=== PATIENT | male | born 1975 | race Caucasian/White ===

== ENCOUNTER 2016-09-06 12:08 | Emergency (ER) | payer MEDICARE, MEDICAID ==
[~2016-09-06] VITALS: Ht 172.7 cm; Wt 78.9 kg
[2016-09-06 12:08] VITALS: BP 136/89
[2016-09-06] MEDS ORDERED: NYST50SS SS (12:43)
[2016-09-06] MEDS ORDERED: IBUP600T26 PO (12:43)
== END 2016-09-06 13:05 | disposition home or self-care (01) ==
LOC: M ED 12:28
DX: R51 Headache (principal); B37.0 Candidal stomatitis; Z87.891 Personal history of nicotine dependence

== ENCOUNTER 2016-10-30 13:18 | Emergency (ER) | payer MEDICARE, MEDICAID ==
[~2016-10-30] VITALS: Ht 172.7 cm; Wt 77.5 kg
[~2016-10-30 13:18] MED LIST: IBUP-1022 PO; NYST50SS SS
--- NOTE | 2016-10-30 14:52 | REP ---
Clinical: Pain without trauma. Technique: AP, lateral, bilateral oblique views of the right ankle. Findings: No acute fracture dislocation. Joint spaces and ankle mortise are intact. Lateral view demonstrates small corticated loose bodies in the region of the distal Achilles tendon. Impression: Age-related degenerative changes. Possible calcific tendinopathy involving the Achilles tendon. Signed by Jared Orozco MD 10/30/2016 02:44 P
[2016-10-30] MEDS ORDERED: NAPR500T PO (15:05)
[2016-10-30 15:09] VITALS: BP 121/72
[2017-02-20] MEDS ORDERED: ZOFR4TAB3 PO (13:17)
== END 2016-10-30 15:20 | disposition home or self-care (01) ==
LOC: M ED 13:18
DX: S93.401A Sprain of unspecified ligament of right ankle, initial encounter (principal); M65.261 Calcific tendinitis, right lower leg; X58.XXXA Exposure to other specified factors, initial encounter; Y92.89 Other specified places as the place of occurrence of the external cause; Y93.01 Activity, walking, marching and hiking; Y99.8 Other external cause status; R56.9 Unspecified convulsions; H53.9 Unspecified visual disturbance

== ENCOUNTER 2017-01-27 09:10 | Emergency (ER) | payer MEDICARE, MEDICAID ==
[~2017-01-27] VITALS: Ht 172.7 cm; Wt 72.2 kg
[~2017-01-27 09:10] MED LIST changes: +NAPR500T PO
[2017-01-27 10:50] LABS: BASO # 0.1 10^3/uL (0.0-0.2); BASO % 0.7 % (0.0-1.0); IMMATURE GRANULOCYTE % 0.3 % (0-0); LYMPH # 2.1 10^3/uL (1.5-4.5); LYMPH % 31.6 % (24.0-44.0); MEAN CORPUSCULAR HEMOGLOBIN 29.5 pg (27.0-33.0); MEAN CORPUSCULAR HGB CONC 33.3 g/dl (32.0-36.5); MEAN CORPUSCULAR VOLUME 88.5 fl (80.0-96.0); MONO # 0.6 10^3/uL (0.0-0.8); MONO % 8.7 % (0.0-5.0); NEUTROPHILS % 58.7 % (36.0-66.0); PLATELET COUNT, AUTOMATED 267 10^3/uL (150-450); RED CELL DISTRIBUTION WIDTH 12.5 % (11.5-14.5); WHITE BLOOD COUNT 6.8 10^3/uL (4.0-10.0)
--- NOTE | 2017-01-27 10:56 | REP ---
AP pelvis and right hip: AP pelvis single view: Mineralization is normal. There is no fracture or dislocation. The sacroiliac articulations and hip articulations are unremarkable. There are pelvic calcifications, likely phleboliths. Impression: Essentially negative AP pelvis. Right hip two views: There is no fracture or dislocation. Mineralization normal. There are no calcifications or foreign bodies. Impression: Negative right hip. Signed by Theodore Frazier MD 01/27/2017 10:47 A
[2017-01-27 11:00] LABS: ADD MANUAL DIFFER NO; DIFF SLIDE NUMBER 201
[2017-01-27 11:07] LABS: ANION GAP 3 MEQ/L (8-16); BLOOD UREA NITROGEN 20 MG/DL (7-18); CALCIUM LEVEL 9.1 MG/DL (8.5-10.1); CARBON DIOXIDE LEVEL 31 MEQ/L (21-32); CHLORIDE LEVEL 105 MEQ/L (98-107); CREATININE FOR GFR 1.02 MG/DL (0.70-1.30); GLOMERULAR FILTRATION RATE > 60.0 (>60); GLUCOSE, FASTING 99 MG/DL (70-105); POTASSIUM SERUM 4.2 MEQ/L (3.5-5.1); SODIUM LEVEL 139 MEQ/L (136-145)
[2017-01-27 12:34] VITALS: BP 123/80
--- NOTE | 2017-01-29 05:44 | ECGEPIP ---
Stationary ECG Study [facility] - ED Test Date: 2017-01-27 Pat Name: ILEANA SALES Department: Room: - Gender: M Automobile Inspector: keshav : 1975 Requested By: Janette Mendoza Order Number: [id number] Reading MD: Keon Terrazas Measurements Intervals [place] Rate: 63 P: 50 AL: 168 QRS: 64 QRSD: 84 T: 48 QT: 388 QTc: 398 Interpretive Statements SINUS RHYTHM BENIGN EARLY REPOLARIZATION NO PRIORS Electronically Signed On 01-29-2017 5:43:46 EDT by Keon Terrazas
[2017-02-20] MEDS ORDERED: ZOFR4TAB3 PO (13:17)
== END 2017-01-27 12:38 | disposition home or self-care (01) ==
LOC: M ED 09:10
DX: J06.9 Acute upper respiratory infection, unspecified (principal); S70.01XA Contusion of right hip, initial encounter; W01.198A Fall on same level from slipping, tripping and stumbling with subsequent striking against other object, initial encounter; Y92.59 Other trade areas as the place of occurrence of the external cause; Y93.89 Activity, other specified; Y99.8 Other external cause status; Z98.890 Other specified postprocedural states

== ENCOUNTER 2017-03-19 17:39 | Emergency (ER) | payer MEDICARE, MEDICAID ==
[~2017-03-19] VITALS: Ht 172.7 cm; Wt 72.0 kg
[~2017-03-19 17:39] MED LIST changes: +ZOFR4TAB3 PO
[2017-03-19] MEDS ORDERED: NS 1,000 ML IV ONE (18:15)
[2017-03-19 18:22] LABS: BASO # 0.1 10^3/uL (0.0-0.2); BASO % 0.7 % (0.0-1.0); IMMATURE GRANULOCYTE % 0.2 % (0-0); LYMPH % 29.3 % (24.0-44.0); MEAN CORPUSCULAR HEMOGLOBIN 29.1 pg (27.0-33.0); MEAN CORPUSCULAR HGB CONC 33.3 g/dl (32.0-36.5); MEAN CORPUSCULAR VOLUME 87.6 fl (80.0-96.0); MONO # 0.8 10^3/uL (0.0-0.8); MONO % 8.2 % (0.0-5.0); NEUTROPHILS # 6.2 10^3/uL (1.8-7.7); NEUTROPHILS % 61.6 % (36.0-66.0); PLATELET COUNT, AUTOMATED 296 10^3/uL (150-450); WHITE BLOOD COUNT 10.1 10^3/uL (4.0-10.0)
--- NOTE | 2017-03-19 18:37 | REP ---
Clinical: Altered mental status . Comparison: 10/12/2005 . Findings: The mediastinum and cardiac silhouette are stable and within normal limits for portable technique. The lung lowry are clear without acute consolidation, effusion, or pneumothorax. Skeletal structures are intact. Impression: No acute cardiopulmonary process appreciated. Signed by Jared Orozco MD 03/19/2017 06:28 P
[2017-03-19 18:38] LABS: ALBUMIN 3.8 GM/DL (3.2-5.2); ALBUMIN/GLOBULIN RATIO 1.12 (1.00-1.93); ALKALINE PHOSPHATASE 77 U/L (45-117); ALT/SGPT 23 U/L (12-78); ANION GAP 5 MEQ/L (8-16); AST/SGOT 12 U/L (7-37); BILIRUBIN,DIRECT < 0.1 MG/DL (0.0-0.2); BILIRUBIN,TOTAL 0.2 MG/DL (0.2-1.0); BLOOD UREA NITROGEN 19 MG/DL (7-18); CALCIUM LEVEL 8.6 MG/DL (8.5-10.1); CARBON DIOXIDE LEVEL 32 MEQ/L (21-32); CHLORIDE LEVEL 102 MEQ/L (98-107); CREATININE FOR GFR 1.09 MG/DL (0.70-1.30); GLOMERULAR FILTRATION RATE > 60.0 (>60); GLUCOSE, FASTING 112 MG/DL (70-105); POTASSIUM SERUM 4.1 MEQ/L (3.5-5.1); SODIUM LEVEL 139 MEQ/L (136-145); TOTAL PROTEIN 7.2 GM/DL (6.4-8.2)
--- NOTE | 2017-03-19 18:45 | REP ---
Clinical: Altered mental status. Comparison: None . Findings: Age-related atrophy and microvascular ischemic changes are appreciated. Areas of encephalomalacia involving the left vertex and bilateral parieto-occipital regions (left greater than right) consistent with prior infarction. The ventricles are symmetric. Mercado-white differentiation is maintained. There is no evidence for acute intracranial hemorrhage, mass/mass effect, pathology or infarction. No extra-axial fluid collection. Calvarium is intact. Paranasal sinuses and mastoid air cells are clear. Impression: Age related atrophy and microvascular ischemic changes along with areas of chronic encephalomalacia related to old infarctions. No acute intracranial hemorrhage, infarction, or mass/mass effect. Signed by Jared Orozco MD 03/19/2017 06:36 P
--- NOTE | 2017-03-19 21:40 | REPUSA ---
Clinical history: seizure. Technique: [id number] MRA images of the brain were obtained without administration of contrast. 3 -D MIP images were also obtained. Findings: The vascular structures extending from the distal carotid and vertebrobasilar arterial syst ems, through the belkofski of [place], demonstrate normal caliber and contour. There is no evidence of an eurysm, stenosis, or thrombosis. Impression: Unremarkable MRA examination of the brain.
--- NOTE | 2017-03-19 22:00 | REPUSA ---
MRI of the brain. Clinical history: seizure. Technique: Multiecho multiplanar MRI images of the brain were obtained without administration of cont rast. Diffusion weighted images with ADC mapping was also obtained. Findings: The ventricles and sulci are symmetric bilaterally, except for large area of encephalomalacia in the occipital lobes bilaterally. The brain parenchyma demonstrates uniform and normal signal on all seque nces. There is no midline shift, mass effect, or extra-axial fluid collection. The midline intracrani al structures do not demonstrate any gross abnormalities. The cervical cranial junction is intact. Th e orbits are unremarkable. The visualized paranasal sinuses and mastoid air cells are clear. The osse ous structures and superficial soft tissues are unremarkable. The vascular structures demonstrate julian ropriate flow voids. Impression: 1. No evidence of acute infarct or hemorrhage. 2. Chronic encephalomalacia in the occipital lobes bilaterally, most consistent with chronic infarcts .
[2017-03-19 22:18] VITALS: BP 141/92
[2017-03-19 22:46] LABS: METHADONE URINE NEGATIVE (NEGATIVE)
--- NOTE | 2017-03-20 07:54 | ECGEPIP ---
Stationary ECG Study [facility] - ED Test Date: 2017-03-19 Pat Name: ILEANA SALES Department: Room: - Gender: M Coding Compliance Specialist: OroscoB: 1975 Requested By: PETTY YUNG Order Number: [id number] Reading MD: Janette Mendoza Measurements Intervals [place] Rate: 84 P: 53 AR: 155 QRS: 67 QRSD: 86 T: 51 QT: 328 QTc: 388 Interpretive Statements SINUS RHYTHM ST ELEVATION ?EARLY REPOLARIZATION - CLINICAL CORRELATION - SIMILAR 01/27/17 Electronically Signed On 03-20-2017 7:54:21 EST by Janette Mendoza
== END 2017-03-19 22:25 | disposition home or self-care (01) ==
LOC: M ED 17:39 → EDBD 17:39 → M ED 22:25
DX: R55 Syncope and collapse (principal); R56.9 Unspecified convulsions
CPT/HCPCS: 70450; 70544; 70551; 71010; 80048; 80076; 80307; 81001; 82550; 82553; 83605; 84443; 84484; 85025; 87086; 93005; 93041; 94760; 96360; 96361; 99285; G0480

== ENCOUNTER 2017-09-26 02:28 | Emergency (ER) | payer MEDICARE, MEDICAID | END 2017-09-26 03:12 | disposition home or self-care (01) | LOC: M ED 02:28 | DX: G40.909 Epilepsy, unspecified, not intractable, without status epilepticus (principal); Z91.19 Patient's noncompliance with other medical treatment and regimen | CPT/HCPCS: 99284 ==

== ENCOUNTER 2017-12-13 15:06 | Emergency (ER) | payer MEDICARE, MEDICAID ==
[2017-12-13 17:26] LABS: BASO # 0.1 10^3/uL (0.0-0.2); BASO % 0.6 % (0.0-1.0); HEMATOCRIT 38.4 % (42.0-52.0); HEMOGLOBIN 12.8 g/dl (13.5-17.5); IMMATURE GRANULOCYTE % 0.3 % (0-3.0); LYMPH # 2.3 10^3/uL (1.5-4.5); LYMPH % 29.6 % (24.0-44.0); MEAN CORPUSCULAR HEMOGLOBIN 29.9 pg (27.0-33.0); MEAN CORPUSCULAR HGB CONC 33.3 g/dl (32.0-36.5); MEAN CORPUSCULAR VOLUME 89.7 fl (80.0-96.0); MONO # 0.6 10^3/uL (0.0-0.8); MONO % 7.4 % (0.0-5.0); NEUTROPHILS # 4.8 10^3/uL (1.8-7.7); NEUTROPHILS % 62.1 % (36.0-66.0); PLATELET COUNT, AUTOMATED 234 10^3/uL (150-450); RED BLOOD COUNT 4.28 10^6/uL (4.30-6.10); RED CELL DISTRIBUTION WIDTH 12.2 % (11.5-14.5); WHITE BLOOD COUNT 7.8 10^3/uL (4.0-10.0)
[2017-12-13 17:49] LABS: ALBUMIN 3.5 GM/DL (3.2-5.2); ALBUMIN/GLOBULIN RATIO 1.21 (1.00-1.93); ALKALINE PHOSPHATASE 62 U/L (45-117); ALT/SGPT 20 U/L (12-78); ANION GAP 5 MEQ/L (8-16); AST/SGOT 12 U/L (7-37); BILIRUBIN,TOTAL 0.3 MG/DL (0.2-1.0); BLOOD UREA NITROGEN 20 MG/DL (7-18); C REACTIVE PROTEIN QUANTITATIV < 0.30 MG/DL (0.00-0.30); CALCIUM LEVEL 8.4 MG/DL (8.5-10.1); CARBON DIOXIDE LEVEL 31 MEQ/L (21-32); CHLORIDE LEVEL 110 MEQ/L (98-107); CREATININE FOR GFR 1.25 MG/DL (0.70-1.30); GAMMA GLUTAMYLTRANSPEPTIDASE 20 U/L (15-85); GLOMERULAR FILTRATION RATE > 60.0 (>60); GLUCOSE, FASTING 90 MG/DL (70-100); POTASSIUM SERUM 4.2 MEQ/L (3.5-5.1); SODIUM LEVEL 146 MEQ/L (136-145); TOTAL PROTEIN 6.4 GM/DL (6.4-8.2)
[2017-12-13 18:31] LABS: APPEARANCE, URINE HAZY (CLEAR); BACTERIA, URINE AUTO NEGATIVE (NEGATIVE); BILIRUBIN, URINE AUTO NEGATIVE (NEGATIVE); BLOOD, URINE BLOOD NEGATIVE (NEGATIVE); COLOR, URINE YELLOW (YELLOW); GLUCOSE, URINE (UA) AUTO NEGATIVE (NEGATIVE); KETONE, URINE AUTO NEGATIVE (NEGATIVE); LEUKOCYTE ESTERASE, URINE AUTO NEGATIVE (NEGATIVE); MUCUS, URINE SMALL (NEGATIVE); NITRITE, URINE AUTO NEGATIVE (NEGATIVE); PROTEIN, URINE AUTO NEGATIVE (NEGATIVE); RBC, URINE AUTO 4 /HPF (0-3); SPECIFIC GRAVITY URINE AUTO 1.025 (1.002-1.035); SQUAMOUS EPITHELIAL CELL UR AU 0 /HPF (0-6); UROBILINOGEN, URINE AUTO 0.2 mg/dL (0.0-2.0); WBC, URINE AUTO 1 /HPF (0-3)
== END 2017-12-13 19:20 | disposition home or self-care (01) ==
LOC: M ED 15:06
DX: R19.7 Diarrhea, unspecified (principal); G80.9 Cerebral palsy, unspecified; R62.50 Unspecified lack of expected normal physiological development in childhood; Z86.69 Personal history of other diseases of the nervous system and sense organs; Z87.891 Personal history of nicotine dependence; Z79.899 Other long term (current) drug therapy
CPT/HCPCS: 76705

== ENCOUNTER → 2018-01-06 | Outpatient (REF) | payer MEDICARE, MEDICAID ==
[2018-01-06 18:29] LABS: BASO # 0.1 10^3/uL (0.0-0.2); BASO % 0.5 % (0.0-1.0); HEMATOCRIT 42.3 % (42.0-52.0); HEMOGLOBIN 14.5 g/dl (13.5-17.5); IMMATURE GRANULOCYTE % 0.3 % (0-3.0); LYMPH # 2.3 10^3/uL (1.5-4.5); LYMPH % 25.1 % (24.0-44.0); MEAN CORPUSCULAR HEMOGLOBIN 29.7 pg (27.0-33.0); MEAN CORPUSCULAR HGB CONC 34.3 g/dl (32.0-36.5); MEAN CORPUSCULAR VOLUME 86.7 fl (80.0-96.0); MONO # 0.6 10^3/uL (0.0-0.8); MONO % 6.5 % (0.0-5.0); NEUTROPHILS # 6.2 10^3/uL (1.8-7.7); NEUTROPHILS % 67.6 % (36.0-66.0); PLATELET COUNT, AUTOMATED 313 10^3/uL (150-450); RED BLOOD COUNT 4.88 10^6/uL (4.30-6.10); RED CELL DISTRIBUTION WIDTH 11.9 % (11.5-14.5); WHITE BLOOD COUNT 9.1 10^3/uL (4.0-10.0)
[2018-01-06 19:29] LABS: ALBUMIN 4.2 GM/DL (3.2-5.2); ALBUMIN/GLOBULIN RATIO 1.31 (1.00-1.93); ALKALINE PHOSPHATASE 74 U/L (45-117); ALT/SGPT 18 U/L (12-78); ANION GAP 9 MEQ/L (8-16); AST/SGOT 13 U/L (7-37); BILIRUBIN,TOTAL 0.4 MG/DL (0.2-1.0); BLOOD UREA NITROGEN 17 MG/DL (7-18); CALCIUM LEVEL 8.8 MG/DL (8.5-10.1); CARBON DIOXIDE LEVEL 26 MEQ/L (21-32); CHLORIDE LEVEL 105 MEQ/L (98-107); CREATININE FOR GFR 1.04 MG/DL (0.70-1.30); GLOMERULAR FILTRATION RATE > 60.0 (>60); GLUCOSE, FASTING 81 MG/DL (70-100); POTASSIUM SERUM 3.9 MEQ/L (3.5-5.1); SODIUM LEVEL 140 MEQ/L (136-145); TOTAL PROTEIN 7.4 GM/DL (6.4-8.2)
[2018-01-12 14:16] LABS: ESLICARBAZEPINE 3 ug/mL (Not Estab.)
== END ==
LOC: M LABNEURO 15:25
DX: G40.909 Epilepsy, unspecified, not intractable, without status epilepticus (principal)
CPT/HCPCS: 80053

== ENCOUNTER 2018-01-25 10:19 | Emergency (ER) | payer MEDICARE, MEDICAID | END 2018-01-25 11:01 | disposition home or self-care (01) | LOC: M ED 10:19 | DX: L03.116 Cellulitis of left lower limb (principal); G80.9 Cerebral palsy, unspecified; Z98.890 Other specified postprocedural states | CPT/HCPCS: 99283 ==

== ENCOUNTER 2018-03-04 17:00 | Emergency (ER) | payer MEDICARE, MEDICAID ==
[2018-03-04 17:34] LABS: BASO % 0.3 % (0.0-1.0); HEMATOCRIT 49.2 % (42.0-52.0); HEMOGLOBIN 16.4 g/dl (13.5-17.5); IMMATURE GRANULOCYTE % 0.4 % (0-3.0); LYMPH # 1.1 10^3/uL (1.5-4.5); LYMPH % 9.6 % (24.0-44.0); MEAN CORPUSCULAR HEMOGLOBIN 29.4 pg (27.0-33.0); MEAN CORPUSCULAR HGB CONC 33.3 g/dl (32.0-36.5); MEAN CORPUSCULAR VOLUME 88.2 fl (80.0-96.0); MONO # 0.8 10^3/uL (0.0-0.8); MONO % 7.6 % (0.0-5.0); NEUTROPHILS # 9.1 10^3/uL (1.8-7.7); NEUTROPHILS % 82.1 % (36.0-66.0); PLATELET COUNT, AUTOMATED 247 10^3/uL (150-450); RED BLOOD COUNT 5.58 10^6/uL (4.30-6.10)
[2018-03-04] MEDS: NS 1,000 ML IV ×3 (17:34→23:00)
[2018-03-04 18:21] LABS: ANION GAP 6 MEQ/L (8-16); BLOOD UREA NITROGEN 17 MG/DL (7-18); CALCIUM LEVEL 9.1 MG/DL (8.5-10.1); CARBON DIOXIDE LEVEL 27 MEQ/L (21-32); CHLORIDE LEVEL 105 MEQ/L (98-107); CREATININE FOR GFR 1.06 MG/DL (0.70-1.30); GLOMERULAR FILTRATION RATE > 60.0 (>60); GLUCOSE, FASTING 119 MG/DL (70-100); POTASSIUM SERUM 4.6 MEQ/L (3.5-5.1); SODIUM LEVEL 138 MEQ/L (136-145)
[2018-03-04] MEDS ORDERED: ISOVUE-370 76% 100ML VIAL (Q9967) As Ordered (20:15)
[2018-03-04] MEDS: GASTROGRAFIN SOLUTION 30ML PO ×2 (22:15→22:47)
[2018-03-04] MEDS ORDERED: ACETAMINOPHEN 325 MG TAB As Ordered (22:20)
[2018-03-04] MEDS: ACETAMINOPHEN TAB 650MG DOSE (2X325MG) PO (22:22)
[2018-03-05] MEDS: IBUPROFEN 800 MG TAB PO
== END 2018-03-05 01:39 | disposition home or self-care (01) ==
LOC: M ED 03-05 01:39
DX: K52.9 Noninfective gastroenteritis and colitis, unspecified (principal); G80.9 Cerebral palsy, unspecified; R56.9 Unspecified convulsions
CPT/HCPCS: Q9963

== ENCOUNTER → 2018-03-24 | Outpatient (REF) | payer MEDICARE, MEDICAID ==
[2018-03-30 00:06] LABS: ESLICARBAZEPINE 10 ug/mL (Not Estab.)
== END ==
LOC: M LABNEURO 14:59
DX: R56.9 Unspecified convulsions (principal)
CPT/HCPCS: G0480

== ENCOUNTER 2018-08-13 12:26 | Emergency (ER) | payer MEDICARE, MEDICAID ==
[~2018-08-13] VITALS: Ht 172.7 cm; Wt 78.7 kg
[~2018-08-13 12:26] MED LIST changes: +APTI1TAB4 PO; +KEFL500C17 PO; +MELO15TA28 PO; +NAPR-837 PO; -NAPR500T PO; +ZOFR4TAB14 PO; -ZOFR4TAB3 PO
[2018-08-13 12:27] VITALS: BP 133/72
[2018-08-13] MEDS ORDERED: CYCL5TAB PO (13:04)
[2018-08-13] MEDS ORDERED: IBUP80TA PO (13:04)
[2018-08-13] MEDS ORDERED: LIDOCAINE 5% (LIDODERM) PATCH TD ONE (13:15)
[2018-08-13] MEDS ORDERED: IBUPROFEN 800 MG TAB PO ONE (13:15)
== END 2018-08-13 13:13 | disposition home or self-care (01) ==
LOC: M ED 12:26
DX: M54.5 Low back pain (principal); G80.9 Cerebral palsy, unspecified; R56.9 Unspecified convulsions; R62.50 Unspecified lack of expected normal physiological development in childhood

== ENCOUNTER → 2018-08-17 | Outpatient (CLI) | payer MEDICARE, MEDICAID ==
[~2018-08-17] MED LIST changes: +CYCL5TAB PO; +IBUP80TA PO
--- NOTE | 2018-08-18 05:33 | REP ---
CERVICAL SPINE, THREE VIEWS: HISTORY: Disc symptoms. There is no acute fracture or subluxation. The C4-5 through C6-7 intervertebral discs are decreased in height consistent with disc degeneration. Osteophytes are present on C4-7. There is loss of the normal lordotic curve. IMPRESSION: Degenerative change as described above. Electronically Signed by Papa Barajas MD 08/18/2018 08:32 A
--- NOTE | 2018-08-18 05:34 | REP ---
THORACIC SPINE, TWO VIEWS: HISTORY: Disc symptoms. There is no acute fracture or subluxation. There is loss of height of several mid and lower thoracic intervertebral discs. Osteophytes are present in the mid and lower thoracic spine. IMPRESSION: Degenerative change as described above. Electronically Signed by Papa Barajas MD 08/18/2018 08:32 A
--- NOTE | 2018-08-18 05:35 | REP ---
LUMBAR SPINE, TWO VIEWS: HISTORY: Disc symptoms. There is no acute fracture or subluxation. The L4-5 intervertebral disc is decreased in height consistent with disc degeneration. IMPRESSION: Degenerative change as described above. Electronically Signed by Papa Barajas MD 08/18/2018 08:32 A
== END ==
LOC: M RAD 18:17
PROVIDERS: ATTEND Chiropractor
DX: M51.36 Other intervertebral disc degeneration, lumbar region (principal); M51.34 Other intervertebral disc degeneration, thoracic region; M50.323 Other cervical disc degeneration at C6-C7 level; M50.321 Other cervical disc degeneration at C4-C5 level; M99.03 Segmental and somatic dysfunction of lumbar region; M54.11 Radiculopathy, occipito-atlanto-axial region; M99.01 Segmental and somatic dysfunction of cervical region; M25.78 Osteophyte, vertebrae

== ENCOUNTER 2018-09-09 16:03 | Emergency (ER) | payer MEDICARE, MEDICAID ==
[~2018-09-09] VITALS: Ht 180.3 cm; Wt 81.1 kg
[2018-09-09 18:01] LABS: BASO # 0.1 10^3/uL (0.0-0.2); BASO % 0.6 % (0.0-1.0); EOS % 0.1 % (0.0-3.0); HEMATOCRIT 44.2 % (42.0-52.0); HEMOGLOBIN 14.9 g/dl (13.5-17.5); LYMPH # 2.8 10^3/uL (1.5-4.5); LYMPH % 32.7 % (24.0-44.0); MEAN CORPUSCULAR HEMOGLOBIN 30.1 pg (27.0-33.0); MEAN CORPUSCULAR HGB CONC 33.7 g/dl (32.0-36.5); MEAN CORPUSCULAR VOLUME 89.3 fl (80.0-96.0); MONO # 0.7 10^3/uL (0.0-0.8); MONO % 8.2 % (0.0-5.0); NEUTROPHILS % 57.9 % (36.0-66.0); PLATELET COUNT, AUTOMATED 279 10^3/uL (150-450); RED BLOOD COUNT 4.95 10^6/uL (4.30-6.10); WHITE BLOOD COUNT 8.7 10^3/uL (4.0-10.0)
[2018-09-09 18:10] LABS: INR 0.89; PROTHROMBIN TIME 12.1 SECONDS (12.1-14.4)
[2018-09-09 18:13] LABS: D-DIMER QUANT 332.49 ng/ml (<500)
[2018-09-09 18:28] LABS: ALBUMIN 4.3 GM/DL (3.2-5.2); ALT/SGPT 35 U/L (12-78); BILIRUBIN,DIRECT < 0.1 MG/DL (0.0-0.2); BILIRUBIN,TOTAL 0.2 MG/DL (0.2-1.0); BLOOD UREA NITROGEN 16 MG/DL (7-18); CALCIUM LEVEL 9.4 MG/DL (8.5-10.1); CARBON DIOXIDE LEVEL 29 MEQ/L (21-32); CHLORIDE LEVEL 104 MEQ/L (98-107); CPK CREATINE PHOSPHOKINASE 174 U/L (39-308); CREATININE FOR GFR 1.02 MG/DL (0.70-1.30); GLOMERULAR FILTRATION RATE > 60.0 (>60); GLUCOSE, FASTING 97 MG/DL (70-100); MB/CK RELATIVE INDEX 1.09 (< OR =4); NT-PRO BNP 9 PG/ML (<125); POTASSIUM SERUM 4.4 MEQ/L (3.5-5.1); SODIUM LEVEL 138 MEQ/L (136-145); TOTAL PROTEIN 7.2 GM/DL (6.4-8.2); TROPONIN I < 0.02 NG/ML (< 0.10)
[2018-09-09] MEDS ORDERED: VENTAER INH (20:08)
[2018-09-09 20:09] VITALS: BP 130/83
--- NOTE | 2018-09-10 08:02 | REP ---
REASON: Dyspnea. COMPARISON: 10/12/2005 the latest prior. FINDINGS: The superior mediastinal structures are midline. The cardiac silhouette is unremarkable in size, shape, and position. The diaphragmatic surfaces of the lungs are regular, and the costophrenic angles are clear. The pulmonary lowry are clear. The imaged osseous structures are intact. IMPRESSION: There is no acute cardiopulmonary disease. Electronically Signed by Michel Pagan DO 09/10/2018 08:30 A
--- NOTE | 2018-09-10 17:46 | ECGEPIP ---
Stationary ECG Study [facility] - ED Test Date: 2018-09-09 Pat Name: ILEANA SALES Department: Room: - Gender: M President And Ceo: ct : 1975 Requested By: GENNARO CHAPMAN PA-C Order Number: [id number] Reading MD: Janette Mendoza Measurements Intervals [place] Rate: 72 P: 45 AL: 167 QRS: 44 QRSD: 82 T: 37 QT: 359 QTc: 393 Interpretive Statements SINUS RHYTHM DECREASED RATE 03/19/17 Electronically Signed On 09-10-2018 17:46:19 EDT by Janette Mendoza
== END 2018-09-09 20:13 | disposition home or self-care (01) ==
LOC: M ED 16:03
DX: R06.02 Shortness of breath (principal); R56.9 Unspecified convulsions; G80.9 Cerebral palsy, unspecified; F79 Unspecified intellectual disabilities; H54.7 Unspecified visual loss; Z79.899 Other long term (current) drug therapy

== ENCOUNTER → 2018-10-11 | Outpatient (REF) | payer MEDICARE, MEDICAID ==
[~2018-10-11] MED LIST changes: +VENTAER INH
[2018-10-11 19:08] LABS: BASO % 0.5 % (0.0-1.0); HEMOGLOBIN 14.5 g/dl (13.5-17.5); LYMPH # 2.1 10^3/uL (1.5-4.5); LYMPH % 28.7 % (24.0-44.0); MEAN CORPUSCULAR HEMOGLOBIN 29.8 pg (27.0-33.0); MEAN CORPUSCULAR VOLUME 90.5 fl (80.0-96.0); MONO # 0.6 10^3/uL (0.0-0.8); MONO % 7.9 % (0.0-5.0); NEUTROPHILS # 4.6 10^3/uL (1.8-7.7); NEUTROPHILS % 62.8 % (36.0-66.0); PLATELET COUNT, AUTOMATED 261 10^3/uL (150-450); RED BLOOD COUNT 4.86 10^6/uL (4.30-6.10); WHITE BLOOD COUNT 7.4 10^3/uL (4.0-10.0)
[2018-10-11 19:20] LABS: ALBUMIN 3.8 GM/DL (3.2-5.2); ALT/SGPT 27 U/L (12-78); BILIRUBIN,TOTAL 0.2 MG/DL (0.2-1.0); BLOOD UREA NITROGEN 17 MG/DL (7-18); CALCIUM LEVEL 9.1 MG/DL (8.5-10.1); CARBON DIOXIDE LEVEL 28 MEQ/L (21-32); CHLORIDE LEVEL 106 MEQ/L (98-107); CREATININE FOR GFR 0.96 MG/DL (0.70-1.30); GLOMERULAR FILTRATION RATE > 60.0 (>60); GLUCOSE, FASTING 92 MG/DL (70-100); POTASSIUM SERUM 4.1 MEQ/L (3.5-5.1); SODIUM LEVEL 140 MEQ/L (136-145); TOTAL PROTEIN 7.1 GM/DL (6.4-8.2)
== END ==
LOC: M LABNEURO 14:02
PROVIDERS: ATTEND Psychiatry & Neurology Neurology
DX: R56.9 Unspecified convulsions (principal)
CPT/HCPCS: 36415; 80053; 85025; G0480

== ENCOUNTER 2019-05-23 21:34 | Emergency (ER) | payer MEDICARE, MEDICAID ==
[~2019-05-23] VITALS: Ht 180.3 cm; Wt 81.9 kg
[2019-05-23] MEDS ORDERED: TOPA100T12 PO (21:38)
[2019-05-23] MEDS ORDERED: TOPIRAMATE (TopAMAX) 100 MG TAB PO ONE (22:30)
[2019-05-23 23:46] VITALS: BP 158/84
== END 2019-05-23 23:47 | disposition home or self-care (01) ==
LOC: M ED 21:34
DX: G40.919 Epilepsy, unspecified, intractable, without status epilepticus (principal); Z79.899 Other long term (current) drug therapy

== ENCOUNTER → 2019-06-03 | Outpatient (CLI) | payer MEDICARE, MEDICAID ==
[~2019-06-03] MED LIST changes: +TOPA100T12 PO
[2019-06-03 10:48] LABS: BASO # 0.1 10^3/uL (0.0-0.2); BASO % 0.9 % (0.0-1.0); HEMATOCRIT 43.7 % (42.0-52.0); HEMOGLOBIN 14.5 g/dl (13.5-17.5); LYMPH # 2.5 10^3/uL (1.5-5.0); LYMPH % 27.7 % (24.0-44.0); MEAN CORPUSCULAR HEMOGLOBIN 29.4 pg (27.0-33.0); MEAN CORPUSCULAR HGB CONC 33.2 g/dl (32.0-36.5); MEAN CORPUSCULAR VOLUME 88.6 fl (80.0-96.0); MONO # 0.8 10^3/uL (0.0-0.8); MONO % 8.6 % (0.0-5.0); NEUTROPHILS # 5.7 10^3/uL (1.5-8.5); NEUTROPHILS % 62.3 % (36.0-66.0); PLATELET COUNT, AUTOMATED 292 10^3/uL (150-450); RED BLOOD COUNT 4.93 10^6/uL (4.30-6.10); WHITE BLOOD COUNT 9.1 10^3/uL (4.0-10.0)
[2019-06-03 11:15] LABS: ALBUMIN 3.9 GM/DL (3.2-5.2); ALT/SGPT 21 U/L (12-78); BILIRUBIN,TOTAL 0.3 MG/DL (0.2-1.0); BLOOD UREA NITROGEN 18 MG/DL (7-18); CALCIUM LEVEL 8.8 MG/DL (8.5-10.1); CARBON DIOXIDE LEVEL 25 MEQ/L (21-32); CHLORIDE LEVEL 108 MEQ/L (98-107); GLOMERULAR FILTRATION RATE > 60.0 (>60); GLUCOSE, FASTING 83 MG/DL (70-100); POTASSIUM SERUM 4.2 MEQ/L (3.5-5.1); SODIUM LEVEL 139 MEQ/L (136-145); TOTAL PROTEIN 7.2 GM/DL (6.4-8.2)
[2019-06-07 08:06] LABS: TOPIRAMATE LEVEL 3.5 ug/mL (2.0-25.0)
== END ==
LOC: M LAB 10:09
PROVIDERS: ATTEND Psychiatry & Neurology Neurology
DX: R56.9 Unspecified convulsions (principal)
CPT/HCPCS: 36415; 80053; 80299; 85025; G0480

== ENCOUNTER → 2020-12-20 | Outpatient (CLI) | payer MEDICARE, MEDICAID ==
[2020-12-20 12:48] LABS: BASO % 0.5 % (0.0-1.0); HEMATOCRIT 39.1 % (42.0-52.0); HEMOGLOBIN 13.3 g/dl (13.5-17.5); LYMPH # 1.8 10^3/uL (1.5-5.0); LYMPH % 24.6 % (24.0-44.0); MEAN CORPUSCULAR HEMOGLOBIN 30.3 pg (27.0-33.0); MEAN CORPUSCULAR VOLUME 89.1 fl (80.0-96.0); MONO # 0.5 10^3/uL (0.0-0.8); MONO % 6.5 % (2.0-8.0); NEUTROPHILS # 5.1 10^3/uL (1.5-8.5); NEUTROPHILS % 68.1 % (36.0-66.0); PLATELET COUNT, AUTOMATED 286 10^3/uL (150-450); RED BLOOD COUNT 4.39 10^6/uL (4.30-6.10); WHITE BLOOD COUNT 7.4 10^3/uL (4.0-10.0)
[2020-12-20 13:32] LABS: ALBUMIN 3.8 GM/DL (3.2-5.2); ALT/SGPT 24 U/L (12-78); BILIRUBIN,TOTAL 0.3 MG/DL (0.2-1.0); BLOOD UREA NITROGEN 19 MG/DL (7-18); CALCIUM LEVEL 9.2 MG/DL (8.5-10.1); CARBON DIOXIDE LEVEL 21 MEQ/L (21-32); CHLORIDE LEVEL 114 MEQ/L (98-107); CREATININE FOR GFR 1.02 MG/DL (0.70-1.30); GLOMERULAR FILTRATION RATE > 60.0 (>60); GLUCOSE, FASTING 89 MG/DL (70-100); POTASSIUM SERUM 3.8 MEQ/L (3.5-5.1); SODIUM LEVEL 140 MEQ/L (136-145)
[2020-12-23 19:08] LABS: LEVETIRACETAM (KEPPRA) 9.7 ug/mL (10.0-40.0)
== END ==
LOC: M LAB 11:51
PROVIDERS: ATTEND Psychiatry & Neurology Neurology
DX: R56.9 Unspecified convulsions (principal)
CPT/HCPCS: 36415; 80053; 80180; 80299; 85025; G0480

== ENCOUNTER → 2023-05-18 | Outpatient (CLI) | payer MEDICARE, MEDICAID ==
[~2023-05-18] MED LIST changes: +NYST-38 SS; -NYST50SS SS
[2023-05-18 17:32] LABS: BASO # 0.1 10^3/uL (0.0-0.2); BASO % 0.6 % (0.0-1.0); EOS % 0.1 % (0.0-3.0); HEMOGLOBIN 13.4 g/dl (13.5-17.5); LYMPH # 2.3 10^3/uL (1.5-5.0); LYMPH % 26.9 % (24.0-44.0); MEAN CORPUSCULAR HEMOGLOBIN 30.1 pg (27.0-33.0); MEAN CORPUSCULAR HGB CONC 32.7 g/dl (32.0-36.5); MEAN CORPUSCULAR VOLUME 92.1 fl (80.0-96.0); MONO # 0.6 10^3/uL (0.0-0.8); MONO % 7.4 % (2.0-8.0); NEUTROPHILS # 5.4 10^3/uL (1.5-8.5); NEUTROPHILS % 64.8 % (36.0-66.0); PLATELET COUNT, AUTOMATED 291 10^3/uL (150-450); RED BLOOD COUNT 4.45 10^6/uL (4.30-6.10); WHITE BLOOD COUNT 8.4 10^3/uL (4.0-10.0)
[2023-05-18 17:54] LABS: ALKALINE PHOSPHATASE 70 U/L (46-116); ALT/SGPT 17 U/L (7.0-40); AST/SGOT 10 U/L (<34); BILIRUBIN,TOTAL 0.4 MG/DL (0.3-1.2); BLOOD UREA NITROGEN 17 MG/DL (9-23); CALCIUM LEVEL 9.1 MG/DL (8.5-10.1); CARBON DIOXIDE LEVEL 26 MMOL/L (20-31); CHLORIDE LEVEL 110 MMOL/L (98-107); CREATININE FOR GFR 1.07 MG/DL (0.70-1.30); GLOMERULAR FILTRATION RATE > 60.0 (>60); GLUCOSE, FASTING 85 MG/DL (60-100); POTASSIUM SERUM 4.2 MMOL/L (3.5-5.1); SODIUM LEVEL 141 MMOL/L (136-145); TOTAL PROTEIN 6.6 G/DL (5.7-8.2)
== END ==
LOC: M PLALAB 12:28
PROVIDERS: ATTEND Psychiatry & Neurology Neurology
DX: R56.9 Unspecified convulsions (principal)
CPT/HCPCS: 36415; 80053; 80180; 80299; 85025; G0480

== ENCOUNTER → 2023-12-22 | Outpatient (CLI) | payer MEDICARE, MEDICAID | LOC: M WUC 11:03 | PROVIDERS: ATTEND Physician Assistant | DX: M54.50 Low back pain, unspecified (principal) ==

== ENCOUNTER 2024-07-19 07:16 | Day surgery (SDC) | payer MEDICARE, MEDICAID ==
[~2024-07-19] VITALS: Ht 185.4 cm; Wt 83.3 kg
[~2024-07-19 07:16] MED LIST changes: +ATOR1TAB21 PO; +BAYE81TA10 PO; -CYCL5TAB PO; +CYCL5TAB4 PO; +LEVE500T5 PO; +META0.52 PO
[2024-07-19 09:30] VITALS: BP 144/92; O2SAT 99
== END 2024-07-19 09:45 | disposition home or self-care (01) ==
LOC: M OPP 07:16
PROVIDERS: ATTEND Surgery
DX: K62.82 Dysplasia of anus (principal); K56.690 Other partial intestinal obstruction; K52.9 Noninfective gastroenteritis and colitis, unspecified; R19.4 Change in bowel habit; Z79.82 Long term (current) use of aspirin; Z79.899 Other long term (current) drug therapy; R56.9 Unspecified convulsions; Z87.891 Personal history of nicotine dependence

== ENCOUNTER → 2024-08-02 | Outpatient (CLI) | payer MEDICARE, MEDICAID ==
[~2024-08-02] MED LIST changes: +CAPE1TAB2 PO; +DIAZ2TAB PO; +ISOVUE-370 76% 100ML VIAL As Ordered ONE
== END ==
LOC: M RAD 08:19
PROVIDERS: ATTEND Surgery
DX: D49.0 Neoplasm of unspecified behavior of digestive system (principal)
CPT/HCPCS: 74177; Q9967

== ENCOUNTER → 2024-08-03 | Outpatient (CLI) | payer MEDICARE, MEDICAID ==
[~2024-08-03] MED LIST changes: -ISOVUE-370 76% 100ML VIAL As Ordered ONE
[2024-08-03 17:23] LABS: BASO # 0.1 10^3/uL (0.0-0.2); BASO % 0.9 % (0.0-1.0); HEMATOCRIT 40.2 % (42.0-52.0); HEMOGLOBIN 13.3 g/dl (13.5-17.5); LYMPH # 2.3 10^3/uL (1.5-5.0); LYMPH % 24.9 % (24.0-44.0); MEAN CORPUSCULAR HEMOGLOBIN 29.4 pg (27.0-33.0); MEAN CORPUSCULAR HGB CONC 33.1 g/dl (32.0-36.5); MEAN CORPUSCULAR VOLUME 88.9 fl (80.0-96.0); MONO # 0.5 10^3/uL (0.0-0.8); MONO % 5.6 % (2.0-8.0); NEUTROPHILS # 6.4 10^3/uL (1.5-8.5); NEUTROPHILS % 68.3 % (36.0-66.0); PLATELET COUNT, AUTOMATED 334 10^3/uL (150-450); RED BLOOD COUNT 4.52 10^6/uL (4.30-6.10); WHITE BLOOD COUNT 9.4 10^3/uL (4.0-10.0)
[2024-08-03 17:37] LABS: ALBUMIN 3.8 G/DL (3.2-5.2); ALKALINE PHOSPHATASE 82 U/L (40-129); ALT/SGPT 40 U/L (7.0-40); AST/SGOT 20 U/L (<34); BILIRUBIN,TOTAL 0.2 MG/DL (0.3-1.2); BLOOD UREA NITROGEN 22 MG/DL (9-23); CALCIUM LEVEL 9.3 MG/DL (8.5-10.1); CARBON DIOXIDE LEVEL 26 MMOL/L (20-31); CHLORIDE LEVEL 108 MMOL/L (98-107); GLOMERULAR FILTRATION RATE 82.3 (>60); GLUCOSE, FASTING 94 MG/DL (60-100); POTASSIUM SERUM 4.1 MMOL/L (3.5-5.1); SODIUM LEVEL 143 MMOL/L (136-145); TOTAL PROTEIN 6.8 G/DL (5.7-8.2)
[2024-08-03 17:42] LABS: CARCINOEMBRYONIC ANTIGEN < 2.0 NG/ML (<2.5)
== END ==
LOC: M LAB 16:46
PROVIDERS: ATTEND Internal Medicine Medical Oncology
DX: K62.9 Disease of anus and rectum, unspecified (principal)

== ENCOUNTER → 2024-08-03 | Outpatient (CLI) | payer MEDICARE, MEDICAID | LOC: M ONCR 13:58 | PROVIDERS: ATTEND General Practice | DX: C20 Malignant neoplasm of rectum (principal); Z85.828 Personal history of other malignant neoplasm of skin; Z87.891 Personal history of nicotine dependence; Z79.82 Long term (current) use of aspirin; Z79.899 Other long term (current) drug therapy ==

== ENCOUNTER → 2024-08-18 | Outpatient (CLI) | payer MEDICARE, MEDICAID ==
[~2024-08-18] MED LIST changes: +ISOVUE-370 76% 100ML VIAL As Ordered ONE; +PROHANCE 279.3MG/ML 15ML VIAL As Ordered ONE; +PROHANCE 279.3MG/ML 5ML VIAL As Ordered ONE
== END ==
LOC: M RAD 06:49
PROVIDERS: ATTEND General Practice
DX: C20 Malignant neoplasm of rectum (principal)
CPT/HCPCS: 71260; 72197; A9576; Q9967

== ENCOUNTER → 2024-09-11 | Outpatient (CLI) | payer MEDICARE, MEDICAID ==
[~2024-09-11] MED LIST changes: -ISOVUE-370 76% 100ML VIAL As Ordered ONE; +ISOVUE-370 76% 100ML VIAL ONE; -PROHANCE 279.3MG/ML 15ML VIAL As Ordered ONE; -PROHANCE 279.3MG/ML 5ML VIAL As Ordered ONE
== END ==
LOC: M PLAIMG 08:13
PROVIDERS: ATTEND Internal Medicine Medical Oncology
DX: C20 Malignant neoplasm of rectum (principal)
CPT/HCPCS: 70491; Q9967

== ENCOUNTER → 2024-10-23 | Outpatient (CLI) | payer MEDICARE, MEDICAID ==
[~2024-10-23] MED LIST changes: +BACT800T5; +CLOB5CR TOP; -ISOVUE-370 76% 100ML VIAL ONE; +LIDO30CR18 TOP; +LOPE2TAB12 PO; +MACR100C43 PO; +ONDA-284 PO; +PROC10TA5 PO; +SIME125T PO; +TRIA1CR80 TOP
== END ==
LOC: M ONCR 09:41
PROVIDERS: ATTEND General Practice
DX: N48.89 Other specified disorders of penis (principal)

== ENCOUNTER → 2024-10-24 | Outpatient (CLI) | payer MEDICARE, MEDICAID ==
[~2024-10-24] VITALS: Ht 182.9 cm; Wt 78.6 kg
[2024-10-24] MEDS: ceFAZolin SODIUM 2 GM in DEXTROSE 5% (D5W) ADV/MINI-BAG 50 ML IV ONE (12:30)
[2024-10-24 13:35] VITALS: TEMP 97.4
[2024-10-24] MEDS: MIDAZOLAM INJ 2 MG/2 ML VIAL IV PRN (13:37)
[2024-10-24] MEDS: NS (Normal Saline) 0.9% 1,000 ML IV SCH (13:38)
[2024-10-24] MEDS: LIDOCAINE 1% MDV 20 ML VIAL SC SCH (13:47)
[2024-10-24 14:15] VITALS: BP 117/76; O2SAT 99
== END ==
LOC: M IRPRO 11:09
PROVIDERS: ATTEND Specialist
DX: C20 Malignant neoplasm of rectum (principal)
CPT/HCPCS: 36561; 99152; 99153; J0690; J1642; J2250; J3010

== ENCOUNTER → 2024-11-07 | Outpatient (CLI) | payer MEDICARE, MEDICAID | LOC: M ONCR 08:54 | PROVIDERS: ATTEND General Practice | DX: C20 Malignant neoplasm of rectum (principal); R21 Rash and other nonspecific skin eruption; Z79.82 Long term (current) use of aspirin; Z79.899 Other long term (current) drug therapy; Z92.21 Personal history of antineoplastic chemotherapy; Z92.3 Personal history of irradiation ==

== ENCOUNTER 2024-12-07 00:33 | Emergency (ER) | payer MEDICARE, MEDICAID ==
[~2024-12-07] VITALS: Ht 175.3 cm; Wt 75.9 kg
[~2024-12-07 00:33] MED LIST changes: +GABA-1171 PO
[2024-12-07 02:47] VITALS: BP 139/82; TEMP 98.2; O2SAT 96
== END 2024-12-07 03:57 | disposition left against medical advice (07) ==
LOC: M ED 03:33
DX: Z53.21 Procedure and treatment not carried out due to patient leaving prior to being seen by health care provider (principal)

== ENCOUNTER → 2025-01-18 | Outpatient (CLI) | payer MEDICARE, MEDICAID ==
[~2025-01-18] MED LIST changes: -IBUP-1022 PO; +IBUP600T42 PO; +ORAL0.1P MT
== END ==
LOC: M RAD 10:25
PROVIDERS: ATTEND Internal Medicine Medical Oncology
DX: R79.89 Other specified abnormal findings of blood chemistry (principal); C18.9 Malignant neoplasm of colon, unspecified; K82.8 Other specified diseases of gallbladder

== ENCOUNTER → 2025-02-08 | Outpatient (CLI) | payer MEDICARE, MEDICAID | LOC: M ONCR 09:04 | PROVIDERS: ATTEND General Practice | DX: C20 Malignant neoplasm of rectum (principal); Z92.21 Personal history of antineoplastic chemotherapy; Z92.3 Personal history of irradiation; Z79.82 Long term (current) use of aspirin; Z79.899 Other long term (current) drug therapy ==